=== PATIENT | male | born 2000 | race Caucasian/White ===

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

== ENCOUNTER 2021-07-18 11:17 | Emergency (ER) | payer OTHER, MEDICAID, SELFPAY ==
[2021-07-18] VITALS (7 sets, daily range): BP systolic 107–131; BP diastolic 55–70; PULSE 53–68; RESP 16; TEMP 36.5; O2SAT 98–100; BMI 23.5
[2021-07-18 12:14] LABS: Add Manual Diff / Slide Review NO; Basophils Absolute Auto 0 /uL (0-100); Basophils Percent Auto 0.6 % (0-2); Eosinophils Absolute Auto 100 /uL (0-450); Eosinophils Percent Auto 1.7 % (2-4); Hematocrit 40.6 % (41-53); Hemoglobin 14.1 g/dL (13.5-17.5); Lymphocytes Absolute Auto 1700 /uL (1100-4500); Lymphocytes Percent Auto 37.8 % (25-40); Mean Corpuscular HGB Conc 34.7 % (30-36); Mean Corpuscular Hemoglobin 28.6 PG (26-34); Mean Corpuscular Volume 82.4 fL (80-100); Monocytes Absolute Auto 400 /uL (0-900); Monocytes Percent Auto 8.8 % (3-14); Neutrophils Absolute Auto 2300 /uL (1500-7000); Neutrophils Percent Auto 51.1 % (50-75); Platelet Count 228 X10^3/uL (150-400); Red Blood Cell Count 4.92 X10^6/uL (4.5-5.9); Red Cell Distribution Width 13.3 % (11.6-14.8); White Blood Cell Count 4.5 X10^3/uL (4.5-11.0)
[2021-07-18 12:23] LABS: INR 1.1 (0.9-1.3); Prothrombin Time 12.2 SECONDS (10.1-12.7)
[2021-07-18 12:25] LABS: PTT Partial Thromboplastin Tim 32 SECONDS (26.4-36.2)
[2021-07-18 12:27] LABS: Alanine Aminotransferase 14 IU/L (<50); Albumin 4.8 g/dL (3.5-5.0); Albumin Globulin Ratio 1.6 (1.0-2.8); Alkaline Phosphatase 58 U/L (38-126); Aspartate Aminotransferase 24 IU/L (17-59); BUN Creatinine Ratio 17.7 (6-22); Blood Urea Nitrogen 14 mg/dL (9-20); Calcium 9.6 mg/dL (8.4-10.2); Carbon Dioxide 29 mmol/L (22-32); Chloride 103 mmol/L (98-107); Estimated Glomerular Filt Rate > 60 mL/min (>60); Glucose 90 mg/dL (70-100); HEMOLYSIS 44 (0-50); Potassium 4.4 mmol/L (3.4-5.1); Sodium 138 mmol/L (137-145); Total Protein 7.8 g/dL (6.3-8.2)
--- NOTE | 2021-07-18 19:44 | ED_ITS ---
HPI - Abdominal Pain <LEE Pickett - Last Filed: 07/18/21 20:02> General Chief Complaint: Abdominal Pain Stated Complaint: stomach bleeding and pain Time Seen by Provider: 07/18/21 13:38 History of Present Illness HPI narrative: This is a 21-year-old male who presents to the emergency department complaining of bright red blood per rectum which has been frequent for him in the past, and is worsening for him this week. Patient endorses having a stressful job, has had multiple stressful influences recently, denies any rectal pain, dysuria, scrotal pain, or hemorrhoids. Patient denies any nausea vomiting, endorses epigastric pain with heartburn occasionally. Patient denies trying any medications for his symptoms so far. Patient denies any fever, he denies any weakness, he denies any flank pain, blood in his urine, or gastrointestinal distress. Related Data Previous Rx's Medication Instructions Recorded methocarbamol 750 mg tablet 750 mg PO QID PRN #20 tab 10/26/18 hydrocortisone 2.5 % topical cream 1 applic DC QD-BID PRN #30 g 07/18/21 with perineal applicator pantoprazole 20 mg tablet,delayed 20 mg PO DAILY #30 tab 07/18/21 release (Protonix) Allergies Allergy/AdvReac Type Severity Reaction Status Date / Time Sulfa (Sulfonamide AdvReac Verified 10/26/18 17:14 Antibiotics) Review of Systems <LEE Pickett - Last Filed: 07/18/21 20:02> Review of Systems Narrative: General: denies fever, chills, malaise, sweats, fatigue Head/Neck: denies headache, neck pain, dizziness Eyes: denies visual changes, eye pain Cardio: denies chest pain, palpitations, edema Respiratory: denies dyspnea, cough, orthopnea GI: Endorses intermittent abdominal pain, denies nausea, vomiting, or diarrhea, endorses bright red blood per rectum, denies rectal pain MSK: denies joint pain, muscle weakness Skin: denies rash, itching, skin lesions or other Neuro: denies numbness, tingling Patient History <LEE Pickett - Last Filed: 07/18/21 20:02> Medical History Displaced fracture of neck of right fifth metacarpal bone Influenza Right wrist sprain Social History Smoking Status: Never smoker Smoking Status: Never smoker tobacco type: vaping alcohol intake frequency: 0-2 drinks per day Substance Use Type: does not use Exam <LEE Pickett - Last Filed: 07/18/21 20:02> Narrative Exam Narrative: Independently reviewed vitals signs and nursing notes. General: cooperative, comfortable, in no acute distress, well groomed Head: atraumatic, symmetrical facial expressions Neck: supple Eyes: equal round and reactive, EOMI, conjunctiva normal Nose: nares patent, no rhinorrhea Mouth/Throat: moist mucus membranes Cardiovascular: regular rate and rhythm, no peripheral edema, warm extremities Respiratory: normal effort, able to speak in complete sentences, no audible wheezing, stridor, or rales. No retractions or tachypnea. GI: abdomen soft, nontender to palpation, nondistended, no masses, no exquisite tenderness with exam, without guarding or rebound, rectal exam deferred, patient denies having any hemorrhoids. MSK: moves all extremities, neurovascularly intact, no weakness, normal tone Skin: brisk capillary refill, no rash, no erythema Neuro: normal speech and cognition, A&O x3 Psych: mental status is grossly normal, congruent mood, normal affect, pleasant and cooperative Initial Vital Signs Initial Vital Signs: Vital Signs Temperature 97.7 F 07/18/21 11:45 Pulse Rate 63 07/18/21 11:45 Respiratory Rate 16 07/18/21 11:45 Blood Pressure 131/70 07/18/21 11:45 Pulse Oximetry 100 07/18/21 11:45 <Taisha Sanchez DO - Last Filed: 07/19/21 07:13> Initial Vital Signs Initial Vital Signs: Vital Signs Temperature 97.7 F 07/18/21 11:45 Pulse Rate 63 07/18/21 11:45 Respiratory Rate 16 07/18/21 11:45 Blood Pressure 131/70 07/18/21 11:45 Pulse Oximetry 100 07/18/21 11:45 Course <LEE Pickett - Last Filed: 07/18/21 20:02> Orders Ordered: Discontinued Medications Ondansetron HCl (Ondansetron 4 Mg/2 Ml Inj) 4 mg IV NOW ONE Stop: 07/18/21 11:59 Last Admin: 07/18/21 12:35 Dose: Not Given Documented by: JOSEF Vital Signs Vital signs: Vital Signs - 8 hr 07/18/21 12:12 07/18/21 12:13 07/18/21 12:30 Pulse Rate 68 66 55 L Blood Pressure 119/55 L 116/58 L Pulse Oximetry 99 100 100 07/18/21 13:00 07/18/21 14:07 07/18/21 14:08 Pulse Rate 53 L 59 L 61 Blood Pressure 107/55 L 120/57 L Pulse Oximetry 98 100 100 <Taisha Sanchez DO - Last Filed: 07/19/21 07:13> Orders Ordered: Discontinued Medications Ondansetron HCl (Ondansetron 4 Mg/2 Ml Inj) 4 mg IV NOW ONE Stop: 07/18/21 11:59 Last Admin: 07/18/21 12:35 Dose: Not Given Documented by: JOSEF Vital Signs Vital signs: Vital Signs - 8 hr 07/18/21 12:12 07/18/21 12:13 07/18/21 12:30 Pulse Rate 68 66 55 L Blood Pressure 119/55 L 116/58 L Pulse Oximetry 99 100 100 07/18/21 13:00 07/18/21 14:07 07/18/21 14:08 Pulse Rate 53 L 59 L 61 Blood Pressure 107/55 L 120/57 L Pulse Oximetry 98 100 100 MDM - Abdominal Pain <LEE Pickett - Last Filed: 07/18/21 20:02> Lab Data Result diagrams: 07/18/21 12:00 07/18/21 12:00 Labs: Lab Results 07/18/21 07/18/21 07/18/21 Range/Units 12:00 12:00 12:00 WBC 4.5 (4.5-11.0) X10^3/uL RBC 4.92 (4.5-5.9) X10^6/uL Hgb 14.1 (13.5-17.5) g/dL Hct 40.6 L (41-53) % MCV 82.4 (80-100) fL MCH 28.6 (26-34) PG MCHC 34.7 (30-36) % RDW 13.3 (11.6-14.8) % Plt Count 228 (150-400) X10^3/uL Neut % (Auto) 51.1 (50-75) % Lymph % (Auto) 37.8 (25-40) % [place] % (Auto) 8.8 (3-14) % Eos % (Auto) 1.7 L (2-4) % Baso % (Auto) 0.6 (0-2) % Neut # (Auto) 2300 (6358-0830) /uL Lymph # (Auto) 1700 (6199-4508) /uL [place] # (Auto) 400 (0-900) /uL Eos # (Auto) 100 (0-450) /uL Baso # (Auto) 0 (0-100) /uL PT 12.2 (10.1-12.7) SECONDS INR 1.1 (0.9-1.3) APTT 32 (26.4-36.2) SECONDS Sodium 138 (137-145) mmol/L Potassium 4.4 (3.4-5.1) mmol/L Chloride 103 (98-107) mmol/L Carbon Dioxide 29 (22-32) mmol/L BUN 14 (9-20) mg/dL Creatinine 0.79 (0.66-1.25) mg/dL Estimated GFR > 60 (>60) mL/min BUN/Creatinine Ratio 17.7 (6-22) Glucose 90 (70-100) mg/dL Calcium 9.6 (8.4-10.2) mg/dL Total Bilirubin 1.0 (0.2-1.3) mg/dL AST 24 (17-59) IU/L ALT 14 (<50) IU/L Alkaline Phosphatase 58 (38-126) U/L Total Protein 7.8 (6.3-8.2) g/dL Albumin 4.8 (3.5-5.0) g/dL Globulin 3.0 (1.7-4.1) g/dL Albumin/Globulin Ratio 1.6 (1.0-2.8) Blood Type Antibody Screen 07/18/21 Range/Units 12:00 WBC (4.5-11.0) X10^3/uL RBC (4.5-5.9) X10^6/uL Hgb (13.5-17.5) g/dL Hct (41-53) % MCV (80-100) fL MCH (26-34) PG MCHC (30-36) % RDW (11.6-14.8) % Plt Count (150-400) X10^3/uL Neut % (Auto) (50-75) % Lymph % (Auto) (25-40) % [place] % (Auto) (3-14) % Eos % (Auto) (2-4) % Baso % (Auto) (0-2) % Neut # (Auto) (1636-5945) /uL Lymph # (Auto) (6732-7435) /uL [place] # (Auto) (0-900) /uL Eos # (Auto) (0-450) /uL Baso # (Auto) (0-100) /uL PT (10.1-12.7) SECONDS INR (0.9-1.3) APTT (26.4-36.2) SECONDS Sodium (137-145) mmol/L Potassium (3.4-5.1) mmol/L Chloride (98-107) mmol/L Carbon Dioxide (22-32) mmol/L BUN (9-20) mg/dL Creatinine (0.66-1.25) mg/dL Estimated GFR (>60) mL/min BUN/Creatinine Ratio (6-22) Glucose (70-100) mg/dL Calcium (8.4-10.2) mg/dL Total Bilirubin (0.2-1.3) mg/dL AST (17-59) IU/L ALT (<50) IU/L Alkaline Phosphatase (38-126) U/L Total Protein (6.3-8.2) g/dL Albumin (3.5-5.0) g/dL Globulin (1.7-4.1) g/dL Albumin/Globulin Ratio (1.0-2.8) Blood Type B Positive Antibody Screen Negative Point of care testing: Urine Dip Bedside Urine Glucose Negative Bedside Urine Bilirubin - Negative Bedside Urine Ketone - Negative Urine Specific [place] 1.015 Bedside Urine Occult Blood - Negative Bedside Urine pH 6.5 Bedside Urine Urobilinogen - Negative Bedside Urine Nitrite - Negative Bedside Urine Leukocytes - Negative Esterase MDM Narrative Medical decision making narrative: This is a 21-year-old male who presents to the emergency department complaining of bright red blood per rectum for the last week which he states is worsening, he states he has had this in the past, he denies any fever, nausea vomiting, significant GI discomfort, history of ulcers, denies any rectal pain or hemorrhoids. Patient endorses having a stressful job, he denies being on any antidepressants, does not take any GI prophylaxis, states that he has heartburn occasionally, nausea with his heartburn, and he drinks coffee. He denies any cigarette smoking but endorses smoking marijuana. Patient states that he has felt like he has an upset stomach a few times, he denies any severe abdominal pain. Patient's lab work overall is grossly unremarkable. There is no anemia, his H&H is stable from 2018, today hemoglobin 14.1, hematocrit 40.6, no left shift, electrolytes are within normal range, no elevation of liver enzymes, nontender abdominal exam. Discussed causes of GI bleeding which include ulcer, stress, this could be irritable bowel syndrome, colitis, ulcerative colitis, Crohn's, patient denies any history of autoimmune disease in his family especially on the male side. He does not currently have a primary care provider, he was encouraged to establish one and was given a phone number. Encourage patient to start taking Protonix daily and see if his symptoms improve, he was prescribed hydrocortisone DC for potential hemorrhoidal bleeding, and given a prescription of hydroxyzine for nausea, and anxiety. Encouraged him to establish care with a primary care provider, practice meditation, avoid spicy food, caffeine, lactose, and anything that seems to worsen his symptoms. Encouraged him to return to the emergency department for any worsening of the symptoms, feeling faint, vomiting, or fever. No peritoneal signs on abdominal exam. Patient remains p.o. tolerant. Serial abdominal exam without increase in abdominal pain. Given history and exam, low suspicion for acute abdominal process, such as acute cholecystitis, pancreatitis, perforated viscus, atypical appendicitis, colitis, diverticulitis or torsion. Extensive conversation about ER return precautions and need for close follow-up. Patient is appropriate and amenable to discharge home. Vital signs are stable on repeat examination is unremarkable. Patient has been informed of results. Patient has been given strict return to ER precautions for any new or worsening symptoms. Patient understands to follow up closely with outpatient providers as instru cted. Patient understands plan and agrees to discharge home. All questions and concerns answered at this time. <Taisha Sanchez, DO - Last Filed: 07/19/21 07:13> Lab Data Labs: Lab Results 07/18/21 07/18/21 07/18/21 Range/Units 12:00 12:00 12:00 WBC 4.5 (4.5-11.0) X10^3/uL RBC 4.92 (4.5-5.9) X10^6/uL Hgb 14.1 (13.5-17.5) g/dL Hct 40.6 L (41-53) % MCV 82.4 (80-100) fL MCH 28.6 (26-34) PG MCHC 34.7 (30-36) % RDW 13.3 (11.6-14.8) % Plt Count 228 (150-400) X10^3/uL Neut % (Auto) 51.1 (50-75) % Lymph % (Auto) 37.8 (25-40) % [place] % (Auto) 8.8 (3-14) % Eos % (Auto) 1.7 L (2-4) % Baso % (Auto) 0.6 (0-2) % Neut # (Auto) 2300 (7378-8658) /uL Lymph # (Auto) 1700 (5203-3293) /uL [place] # (Auto) 400 (0-900) /uL Eos # (Auto) 100 (0-450) /uL Baso # (Auto) 0 (0-100) /uL PT 12.2 (10.1-12.7) SECONDS INR 1.1 (0.9-1.3) APTT 32 (26.4-36.2) SECONDS Sodium 138 (137-145) mmol/L Potassium 4.4 (3.4-5.1) mmol/L Chloride 103 (98-107) mmol/L Carbon Dioxide 29 (22-32) mmol/L BUN 14 (9-20) mg/dL Creatinine 0.79 (0.66-1.25) mg/dL Estimated GFR > 60 (>60) mL/min BUN/Creatinine Ratio 17.7 (6-22) Glucose 90 (70-100) mg/dL Calcium 9.6 (8.4-10.2) mg/dL Total Bilirubin 1.0 (0.2-1.3) mg/dL AST 24 (17-59) IU/L ALT 14 (<50) IU/L Alkaline Phosphatase 58 (38-126) U/L Total Protein 7.8 (6.3-8.2) g/dL Albumin 4.8 (3.5-5.0) g/dL Globulin 3.0 (1.7-4.1) g/dL Albumin/Globulin Ratio 1.6 (1.0-2.8) Blood Type Antibody Screen 07/18/21 Range/Units 12:00 WBC (4.5-11.0) X10^3/uL RBC (4.5-5.9) X10^6/uL Hgb (13.5-17.5) g/dL Hct (41-53) % MCV (80-100) fL MCH (26-34) PG MCHC (30-36) % RDW (11.6-14.8) % Plt Count (150-400) X10^3/uL Neut % (Auto) (50-75) % Lymph % (Auto) (25-40) % [place] % (Auto) (3-14) % Eos % (Auto) (2-4) % Baso % (Auto) (0-2) % Neut # (Auto) (4025-5871) /uL Lymph # (Auto) (8721-4685) /uL [place] # (Auto) (0-900) /uL Eos # (Auto) (0-450) /uL Baso # (Auto) (0-100) /uL PT (10.1-12.7) SECONDS INR (0.9-1.3) APTT (26.4-36.2) SECONDS Sodium (137-145) mmol/L Potassium (3.4-5.1) mmol/L Chloride (98-107) mmol/L Carbon Dioxide (22-32) mmol/L BUN (9-20) mg/dL Creatinine (0.66-1.25) mg/dL Estimated GFR (>60) mL/min BUN/Creatinine Ratio (6-22) Glucose (70-100) mg/dL Calcium (8.4-10.2) mg/dL Total Bilirubin (0.2-1.3) mg/dL AST (17-59) IU/L ALT (<50) IU/L Alkaline Phosphatase (38-126) U/L Total Protein (6.3-8.2) g/dL Albumin (3.5-5.0) g/dL Globulin (1.7-4.1) g/dL Albumin/Globulin Ratio (1.0-2.8) Blood Type B Positive Antibody Screen Negative Point of care testing: Urine Dip Bedside Urine Glucose Negative Bedside Urine Bilirubin - Negative Bedside Urine Ketone - Negative Urine Specific [place] 1.015 Bedside Urine Occult Blood - Negative Bedside Urine pH 6.5 Bedside Urine Urobilinogen - Negative Bedside Urine Nitrite - Negative Bedside Urine Leukocytes - Negative Esterase Discharge Plan Departure Patient Disposition: Home Clinical Impression: BRBPR (bright red blood per rectum) Instructions: Gastrointestinal Bleeding Activity Restrictions/Additional Instructions: *You have been diagnosed with bright red blood in your stool. Most common causes are stress induced, hemorrhoidal, can be peptic ulcer, irritable bowel syndrome, inflammatory like Crohn's disease, and sometimes due to infection. Since you do not have any illness symptoms today, this is likely colitis due to a trigger. Please practice meditation, mindfulness, therapeutic coping mechanisms, calming your anxious brain is a book that might be helpful however it is dry, therapy, and antidepressants. If you have a history depression, anxiety, or feel overly stressed in every day situations, you may benefit from an antidepressant. Please avoid heavy amounts of alcohol as this can also cause GI bleeding. There is a phone number below to call and establish care with one of her primary care provider's otherwise look at your insurance to see who is seeing people near you. I have sent Pantoprazole and ulcer preventative medicine to your pharmacy as well as hydrocortisone applicators for rectal bleed ing. This is helpful if you have any hemorrhoidal bleeding, if you do not, it might not be that helpful. Please establish care with a primary care provider, seek out outpatient resources that might be helpful and I wish you the best. If you feel dizzy, lightheaded, faint, or have heavy amounts of bleeding that concern you, please return to the emergency department. *What to do: *Please continue to take your regular medications as directed. [x] New medication prescriptions sent to your pharmacy: [ [facility]] [ ] New medication written as a paper prescription [ ] No new medications given *Please follow up with your primary care provider in 2-3 days, call for an appointment. Let them know you were seen in the Emergency Department and that we asked that you be seen for follow-up. We will electronically transmit a record of today's note if your PCP is in our system *If you do not have a primary care provider please contact [phone] to establish care with one of the [facility] primary care providers. *Return to Emergency Department if you should have any new, worsening or concerning symptoms, such as [fever greater than 101F, chills, worsening pain, persistent vomiting or other bothersome symptoms] Prescriptions: New hydrocortisone 2.5 % cream with perineal applicator 1 applic DC QD-BID PRN (Reason: bleeding) Qty: 30 0RF pantoprazole [Protonix] 20 mg tablet,delayed release (DR/EC) 20 mg PO DAILY Qty: 30 0RF No Action methocarbamol 750 mg tablet 750 mg PO QID PRN (Reason: muscle spasm) Qty: 20 0RF <Taisha Sanchez DO - Last Filed: 07/19/21 07:13> Cosign ED Attending Cosrafiature Attestation: I was immediately available in the department for consultation. Documentation has been reviewed. I agree with assessment and plan.
== END 2021-07-18 14:10 | disposition home or self-care (01) ==
PROVIDERS: Emergency Medicine; Emergency Provider Nurse Practitioner Critical Care Medicine
DX: K62.5 Hemorrhage of anus and rectum (principal)
CPT/HCPCS: 36415; 80053; 81003; 85025; 85610; 85730; 86850; 86900; 86901; 93005; 99283

== ENCOUNTER 2021-10-11 21:49 | Emergency (ER) | payer OTHER, MEDICAID, SELFPAY ==
[2021-10-11 22:26] VITALS: BP 134/65; PULSE 80; RESP 18; TEMP 36.6; O2SAT 99
--- NOTE | 2021-10-11 22:35 | PC.NURSE ---
He is asymptomatic,no pain or sob,no palpitations.
== END 2021-10-12 00:15 | disposition left against medical advice (07) ==
PROVIDERS: Emergency Provider Emergency Medicine
DX: R00.2 Palpitations (principal)
CPT/HCPCS: 93005; 93010; 99281

== ENCOUNTER 2022-11-20 17:35 | Emergency (ER) | payer OTHER, MEDICAID, SELFPAY ==
[2022-11-20] VITALS (14 sets, daily range): BP systolic 93–122; BP diastolic 51–66; PULSE 51–81; RESP 16–18; TEMP 36.7–36.8; O2SAT 97–100; BMI 22.6
[2022-11-20 18:51] LABS: Add Manual Diff / Slide Review NO; Basophils Absolute Auto 0 /uL (0-100); Basophils Percent Auto 0.4 % (0-2); Eosinophils Absolute Auto 100 /uL (0-450); Eosinophils Percent Auto 1.5 % (2-4); Hematocrit 41.3 % (41-53); Hemoglobin 14.8 g/dL (13.5-17.5); Lymphocytes Absolute Auto 1900 /uL (1100-4500); Lymphocytes Percent Auto 29.2 % (25-40); Mean Corpuscular HGB Conc 35.7 % (30-36); Mean Corpuscular Hemoglobin 29.2 PG (26-34); Mean Corpuscular Volume 81.9 fL (80-100); Monocytes Absolute Auto 400 /uL (0-900); Monocytes Percent Auto 6.7 % (3-14); Neutrophils Absolute Auto 4100 /uL (1500-7000); Neutrophils Percent Auto 62.2 % (50-75); Platelet Count 254 X10^3/uL (150-400); Red Blood Cell Count 5.05 X10^6/uL (4.5-5.9); Red Cell Distribution Width 12.8 % (11.6-14.8); White Blood Cell Count 6.6 X10^3/uL (4.5-11.0)
[2022-11-20 19:08] LABS: Alanine Aminotransferase 15 IU/L (<50); Albumin 4.7 g/dL (3.5-5.0); Albumin Globulin Ratio 1.5 (1.0-2.8); Alkaline Phosphatase 54 U/L (38-126); Aspartate Aminotransferase 19 IU/L (17-59); BUN Creatinine Ratio 13.9 (6-22); Bilirubin Total 0.6 mg/dL (0.2-1.3); Blood Urea Nitrogen 11 mg/dL (9-20); Calcium 9.7 mg/dL (8.4-10.2); Carbon Dioxide 26 mmol/L (22-32); Chloride 104 mmol/L (98-107); Creatine Kinase 81 U/L (55-170); Estimated Glomerular Filt Rate > 60 mL/min (>60); Globulin 3.1 g/dL (1.7-4.1); Glucose 93 mg/dL (70-100); HEMOLYSIS < 15 (0-50); Lipase 108 U/L (23-300); Potassium 4.2 mmol/L (3.4-5.1); Sodium 139 mmol/L (137-145); Total Protein 7.8 g/dL (6.3-8.2)
[2022-11-20 19:19] LABS: Troponin I < 0.012 ng/mL (0.01-0.034)
[2022-11-20] MEDS: MAG HYDROX/ALUM/SIMETH 30 ML UDC PO (19:44)
--- NOTE | 2022-11-20 20:40 | PC.NURSE ---
Patient states minimal relief after taking Maalox, Dr. Ross aware.
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
--- NOTE | 2022-11-20 21:22 | DI.CT.S_ITS ---
PROCEDURE: CT ABDOMEN PELVIS W CON INDICATIONS: w/ both oral and IV contrast / abd pain TECHNIQUE: After the administration of oral and IV contrast, axial sections were acquired from the lung bases to the pubic symphysis. Coronal and sagittal reformats were performed. For radiation dose reduction, the following was used: automated exposure control, adjustment of mA and/or kV according to patient size. COMPARISON: None. FINDINGS: Image quality: Excellent. Lung bases: Unremarkable. Heart: Heart is normal in size. ABDOMEN: Liver: No mass lesion. Gallbladder: Within normal limits without calcified gallstones. Biliary ducts: No biliary ductal dilatation. Pancreas: Unremarkable. Spleen: Normal in size. Adrenal Glands: No adrenal nodules. Kidneys and Ureters: No hydronephrosis. Stomach and Bowel: Stomach, small bowel loops, and colon are normal in caliber and wall thickness. The appendix is normal. There are a few colonic diverticula without acute diverticulitis. Peritoneum: No abnormal intraperitoneal fluid. No free air. Ventral Wall: No hernia. Abdominal Nodes: No retroperitoneal or mesenteric adenopathy by size criteria. Vessels: Aorta and inferior vena cava are normal in size. PELVIS: Pelvic Organs: Unremarkable. Bladder: Unremarkable. Pelvic Nodes: No enlarged lymph nodes. Miscellaneous: No inguinal hernias are seen. Bones: Visualized osseous structures demonstrate no suspicious focal lesions. IMPRESSION: 1. No definite acute intra-abdominal abnormality. Specifically, no evidence of bowel obstruction or appendicitis. Dictated by: Eren Rubio M.D. on 11/20/2022 at 23:39 Approved by: Eren Rubio M.D. on 11/20/2022 at 23:41
[2022-11-20 22:51] LABS: Erythrocyte Sedimentation Rate 1 MM/HR (0-15)
[2022-11-20 22:53] LABS: C-Reactive Protein Quant < 0.5 mg/dL (<1.0)
[2022-11-21] VITALS: PULSE 50; O2SAT 98
[2022-11-21 00:30] VITALS: BP 106/51; PULSE 49; O2SAT 97
[2022-11-21 01:05] VITALS: PULSE 70; O2SAT 97
== END 2022-11-21 01:19 | disposition home or self-care (01) ==
PROVIDERS: Emergency Medicine; Emergency Provider Emergency Medicine
DX: R10.84 Generalized abdominal pain (principal); K92.1 Melena; R63.4 Abnormal weight loss
CPT/HCPCS: 36415; 74177; 80053; 81003; 82550; 83690; 84484; 85025; 85651; 86140; 93005; 99284; Q9967

== ENCOUNTER 2023-08-22 21:34 | Emergency (ER) | payer OTHER, MEDICAID, SELFPAY ==
[2023-08-22 21:42] VITALS: BP 125/64; PULSE 84; RESP 14; TEMP 37.1; O2SAT 98; BMI 23.7
--- NOTE | 2023-08-22 21:55 | DI.RAD.S_ITS ---
PROCEDURE: XR THORACIC SPINE 3V INDICATIONS: injury TECHNIQUE: 5 views of the thoracic spine were acquired. COMPARISON: None. FINDINGS: Bones: Significant patient motion artifact. No fractures or dislocations. No suspicious bony lesions. 12 pairs of ribs are noted, and appear intact where visualized. Soft tissues: No paravertebral stripe thickening. IMPRESSION: Within the limitations of this exam, no acute osseous abnormalities or traumatic malalignment. Dictated by: Rohan Tuttle M.D. on 08/22/2023 at 23:01 Approved by: Rohan Tuttle M.D. on 08/22/2023 at 23:01
--- NOTE | 2023-08-22 21:58 | PC.NURSE ---
Pt friend calls to report patient hand is purple. This RN brings patient back to a room. Pt RIGHT hand has some mild discoloration. Bilateral radial pulses palpated and cap refill in both hands in less than 2 seconds on all fingertips. Pt reports feeling normal sensation in right hand. Provider made aware.
--- NOTE | 2023-08-22 22:38 | ED_ITS ---
HPI - Back Pain/Injury General Chief Complaint: Back Pain/Injury Stated Complaint: back and rib pain Time Seen by Provider: 08/22/23 22:08 Source: patient History of Present Illness HPI Narrative: 23-year-old male presents for left-sided thoracic back pain. Patient states that he was lifting earlier in the day and even though his reported lifting load was light he felt ?something shadow? in his upper back. He took 800 mg ibuprofen earlier in the day and had his girlfriend massage his back, but he is continuing to have pain. States he was here today to make sure nothing in his back is broken Related Data Previous Rx's Medication Instructions Recorded methocarbamol 750 mg tablet 750 mg PO QID PRN muscle spasm #20 10/26/18 tabs hydrocortisone 2.5 % topical cream 1 applic NM QD-BID PRN bleeding 07/18/21 with perineal applicator #30 grams pantoprazole 20 mg tablet,delayed 20 mg PO DAILY #30 tabs 07/18/21 release (Protonix) omeprazole 40 mg capsule,delayed 40 mg PO DAILY #30 caps 11/21/22 release Allergies Allergy/AdvReac Type Severity Reaction Status Date / Time Sulfa (Sulfonamide AdvReac Verified 10/26/18 17:14 Antibiotics) Patient History Medical History Right wrist sprain Influenza Displaced fracture of neck of right fifth metacarpal bone Social History Smoking Status: Current every day smoker Smoking Status: Current every day smoker tobacco type: vaping alcohol intake frequency: 0-2 drinks per day Substance Use Type: does not use Exam Initial Vital Signs Initial Vital Signs: Vital Signs Temperature 98.7 F 08/22/23 21:42 Pulse Rate 84 08/22/23 21:42 Respiratory Rate 14 08/22/23 21:42 Blood Pressure 125/64 08/22/23 21:42 Pulse Oximetry 98 08/22/23 21:42 Oxygen Delivery Method Room Air 08/22/23 21:42 Const: Awake, alert, no acute distress, nontoxic appearing GI: Soft, nontender, nondistended, no rebound, no guarding MSK: No midline tenderness, left-sided paraspinal muscle spasm thoracic back Skin: Warm, Dry, intact, no rashes Neuro: AO x3, CN II-XII grossly intact, moves all extremities Course Orders Ordered: ED Orders 08/22/23 21:55 XR thoracic spine 3V Stat Discontinued Medications Acetaminophen (Acetaminophen 325 Mg Tablet) 975 mg PO NOW ONE Stop: 08/22/23 22:39 Last Admin: 08/22/23 23:19 Dose: Not Given Documented By: ALEJANDRO Cyclobenzaprine HCl (Cyclobenzaprine 10 Mg Tablet) 10 mg PO NOW ONE Stop: 08/22/23 22:39 Last Admin: 08/22/23 23:19 Dose: Not Given Documented By: ALEJANDRO Dexamethasone (Dexamethasone 10 Mg/Ml Vial) 10 mg IM NOW ONE Stop: 08/22/23 22:39 Last Admin: 08/22/23 23:20 Dose: Not Given Documented By: ALEJANDRO Ketorolac Tromethamine (Ketorolac 30 Mg/Ml Vial) 30 mg IM NOW ONE Stop: 08/22/23 22:39 Last Admin: 08/22/23 23:20 Dose: Not Given Documented By: ALEJANDRO Vital Signs Vital signs: Vital Signs - 8 hr 08/22/23 21:42 08/22/23 23:43 Temperature 98.7 F Pulse Rate 84 72 Respiratory Rate 14 16 Blood Pressure 125/64 117/55 L Pulse Oximetry 98 98 Oxygen Delivery Method Room Air Room Air MDM - Back Pain/Injury Differential Diagnosis Differential diagnosis: Likely thoracic back pain and other (muscle spasm, arm strain) Imaging Data Extremity x-ray #1: Radiologist's Impression: PROCEDURE: XR THORACIC SPINE 3V INDICATIONS: injury TECHNIQUE: 5 views of the thoracic spine were acquired. COMPARISON: None. FINDINGS: Bones: Significant patient motion artifact. No fractures or dislocations. No suspicious bony lesions. 12 pairs of ribs are noted, and appear intact where visualized. Soft tissues: No paravertebral stripe thickening. IMPRESSION: Within the limitations of this exam, no acute osseous abnormalities or traumatic malalignment. Dictated by: Rohan Tuttle M.D. on 08/22/2023 at 23:01 Approved by: Rohan Tuttle M.D. on 08/22/2023 at 23:01 [facility] Narrative Medical decision making narrative: Thoracic back pain after lifting earlier this afternoon. There was no midline tenderness, he was a left-sided paraspinal muscle spasm. Patient declined any medication administered in the emergency department. X-ray imaging negative for acute findings. Offered to send a prescription of muscle relaxers to patient's pharmacy, however he declined stating that he would like to treat this ?as naturally as possible?. Tylenol, ibuprofen, gentle stretching, massage recommended for symptomatic relief. Discharge Plan Departure Patient Disposition: Home Clinical Impression: Strain of thoracic back region Instructions: DI for Back Spasm Activity Restrictions/Additional Instructions: Take Tylenol and/or ibuprofen as needed for pain. You may also apply heat and/or ice as needed for comfort. Gentle massage can also help relieve muscle tension. Prescriptions: No Action methocarbamol 750 mg tablet 750 mg PO QID PRN (Reason: muscle spasm) Qty: 20 0RF hydrocortisone 2.5 % cream with perineal applicator 1 applic NM QD-BID PRN (Reason: bleeding) Qty: 30 0RF pantoprazole [Protonix] 20 mg tablet,delayed release (DR/EC) 20 mg PO DAILY Qty: 30 0RF omeprazole 40 mg capsule,delayed release(DR/EC) 40 mg PO DAILY Qty: 30 3RF Stand Alone Forms: Patient Portal/API
[2023-08-22 23:43] VITALS: BP 117/55; PULSE 72; RESP 16; O2SAT 98
== END 2023-08-22 23:40 | disposition home or self-care (01) ==
PROVIDERS: Emergency Provider Emergency Medicine
DX: S29.012A Strain of muscle and tendon of back wall of thorax, initial encounter (principal); X50.9XXA Other and unspecified overexertion or strenuous movements or postures, initial encounter
CPT/HCPCS: 72072; 99281; 99282